=== PATIENT | male | born 1975 | race Caucasian/White ===

== ENCOUNTER 2016-10-27 11:19 | Emergency (ER) | payer OTHER ==
[~2016-10-27] VITALS: Ht 182.9 cm; Wt 104.1 kg
[2016-10-27] MEDS ORDERED: LORTAB 5-325 M1 EACH PO (14:16)
[2016-10-27 14:31] VITALS: BP 123/74
== END 2016-10-27 14:32 | disposition home or self-care (01) ==
LOC: EME 11:19
DX: S49.91XA Unspecified injury of right shoulder and upper arm, initial encounter (principal); V00.321A Fall from snow-skis, initial encounter; Y93.23 Activity, snow (alpine) (downhill) skiing, snowboarding, sledding, tobogganing and snow tubing; Y92.838 Other recreation area as the place of occurrence of the external cause
CPT/HCPCS: 73030; 99281; 99284